=== PATIENT | female | born 2000 ===

== ENCOUNTER 2022-06-11 05:21 | Inpatient (IN) | payer SELFPAY ==
[2022-06-11] MEDS ORDERED: Sodium Chloride 0.9% 2.5 ML Syringe FLUSH PRN (05:27)
[2022-06-11] MEDS ORDERED: ceFAZolin 2 GM in Premix Bag 1 BAG IV ONE (05:27)
[2022-06-11] MEDS ORDERED: Citric Acid/Sodium Citrate Solution 30 ML Cup PO ONE (05:27)
[2022-06-11] MEDS ORDERED: Sodium Chloride 0.9% 10 ML Syringe FLUSH PRN (05:27)
[2022-06-11] MEDS ORDERED: Sodium Chloride 0.9% 20 ML SDV IV PRN (05:27)
[2022-06-11] MEDS ORDERED: Oxytocin/0.9 % Sodium Chloride 30 UNIT/500 ML BAG IV SCH (05:30)
[2022-06-11] MEDS: Lactated Ringers 1,000 ML IV SCH ×4 (06:14→16:26)
[2022-06-11] MEDS ORDERED: Ondansetron 4 MG/2 ML SDV ONE ×3 (07:33→08:54)
[2022-06-11] MEDS ORDERED: Morphine PF 10 MG/10 ML SDV ONE (07:33)
[2022-06-11] MEDS ORDERED: Phenylephrine 1% 10 MG/ML SDV ONE ×2 (07:33)
[2022-06-11] MEDS ORDERED: fentaNYL 100 MCG/2 ML SDV ONE (07:33)
[2022-06-11] MEDS ORDERED: ceFAZolin 1 GM Vial ONE (07:49)
[2022-06-11] MEDS ORDERED: Glycopyrrolate 0.2 MG/ML SDV ONE (07:59)
[2022-06-11] MEDS ORDERED: fentaNYL 100 MCG/2 ML SDV IVPUSH PRN (08:19)
[2022-06-11] MEDS ORDERED: diphenhydrAMINE 50 MG/ML SDV IVPUSH PRN ×2 (08:19→08:31)
[2022-06-11] MEDS ORDERED: Morphine 2 MG/ML SYRINGE IVPUSH PRN (08:19)
[2022-06-11] MEDS ORDERED: fentaNYL 50 MCG/ML SDV IVPUSH PRN ×2 (08:19→08:49)
[2022-06-11] MEDS ORDERED: HYDROmorphone 1 MG/ML Syringe IVPUSH PRN (08:19)
[2022-06-11] MEDS ORDERED: Albuterol 0.083% 2.5 MG/3 ML Neb Soln NEB PRN (08:19)
[2022-06-11] MEDS ORDERED: ePHEDrine 50 MG/ML SDV IVPUSH PRN (08:19)
[2022-06-11] MEDS ORDERED: Ondansetron 4 MG/2 ML SDV IVPUSH PRN ×3 (08:19→08:31)
[2022-06-11] MEDS ORDERED: Metoclopramide 10 MG/2 ML SDV IVPUSH PRN (08:19)
[2022-06-11] MEDS ORDERED: Acetaminophen/oxyCODONE 325-5 MG Tab PO PRN ×2 (08:19→08:31)
[2022-06-11] MEDS ORDERED: Naloxone 0.4 MG/ML SDV IVPUSH PRN (08:19)
[2022-06-11] MEDS ORDERED: Phenylephrine HCl In 0.9% NaCl 1 MG/10 ML Vial IVPUSH SCH (08:30)
[2022-06-11] MEDS ORDERED: Bisacodyl 10 MG Supp RECTAL PRN (08:31)
[2022-06-11] MEDS ORDERED: Lanolin 100% Cream 7 GM Tube TOP PRN (08:31)
[2022-06-11] MEDS ORDERED: Tranexamic Acid 1,000 MG in Sodium Chloride 0.9% 100 ML IV PRN (08:31)
[2022-06-11] MEDS ORDERED: Oxytocin 10 Units/1 ML SDV IM PRN (08:31)
[2022-06-11] MEDS ORDERED: Methylergonovine 0.2 MG/1 ML Amp IM PRN (08:31)
[2022-06-11] MEDS ORDERED: Misoprostol 200 MCG Tab RECTAL PRN (08:31)
[2022-06-11] MEDS ORDERED: Lidocaine 2% 5 ML SDV ONE (08:54)
[2022-06-11] MEDS ORDERED: Dexamethasone 4 MG/ML 5 ML MDV ONE (08:54)
[2022-06-11] MEDS ORDERED: Ketorolac 30 MG/ML SDV ONE (08:55)
[2022-06-11] MEDS ORDERED: Ropivacaine 0.5% 5 MG/ML 30 ML SDV ONE (08:55)
[2022-06-11] MEDS: Ketorolac 30 MG/ML SDV IVPUSH SCH ×3 (10:35→20:42)
[2022-06-11] MEDS: Docusate Sodium 100 MG Cap PO SCH ×2 (15:29→20:42)
[2022-06-12] MEDS: Ketorolac 30 MG/ML SDV IVPUSH SCH ×2 (02:44→08:50)
[2022-06-12] MEDS: Docusate Sodium 100 MG Cap PO SCH ×2 (08:51→21:05)
[2022-06-12] MEDS ORDERED: Acetaminophen/oxyCODONE 325-5 MG Tab ONE (14:21)
[2022-06-12] MEDS: Acetaminophen/oxyCODONE 325-5 MG Tab PO PRN ×2 (14:24→20:29)
[2022-06-12] MEDS ORDERED: Ibuprofen 800 MG Tab PO PRN (14:45)
[2022-06-13] MEDS: Acetaminophen/oxyCODONE 325-5 MG Tab PO PRN ×2 (00:53→10:40)
[2022-06-13] MEDS: Docusate Sodium 100 MG Cap PO SCH (09:08)
== END 2022-06-13 11:25 | disposition home or self-care (01) | DRG 788 ==
LOC: MW.OB 05:21
PROVIDERS: ADMIT Obstetrics & Gynecology; ATTEND Obstetrics & Gynecology
PROC: 10D00Z1 Extraction of Products of Conception, Low, Open Approach (ICD-10-PCS; principal; 2022-06-11)
DX: O34.211 Maternal care for low transverse scar from previous cesarean delivery (principal); Z37.0 Single live birth; Z3A.39 39 weeks gestation of pregnancy
CPT/HCPCS: 36415; 59025; 85014; 85018; 85027; 86592; 86850; 86900; 86901; A9270-GY; J0131; J0690; J1100; J1790; J1885; J2274; J2370; J2405; J2795; J3010; J3490; J7120